=== PATIENT | male | born 1955 | race Caucasian/White ===

== ENCOUNTER 2020-01-26 09:48 | Outpatient (REF) | payer OTHER, SELFPAY ==
[2020-01-26 10:17] LABS: MANUAL DIFF FLAG NO
[2020-01-26 10:27] LABS: Basophils Percent Auto 0.2 % (0-2); Eosinophils Percent Auto 0.2 % (0-4); Hematocrit 44.6 % (42-52); Hemoglobin 15.2 g/dl (14.0-18.0); Imm Gran Abs Auto 0.02 X10*3/uL (0.00-0.03); Imm Gran Pct Auto 0.3 % (0.0-0.4); Lymphocytes Absolute Auto 2.1 X10*3/uL (1.2-4.9); Lymphocytes Percent Auto 35.1 % (20-40); Mean Corpuscular HGB Conc 34.1 g/dl (31.0-36.0); Mean Corpuscular Hemoglobin 31.5 pg (27.0-33.0); Mean Corpuscular Volume 92.5 fL (80-98); Mean Platelet Volume 9.4 fL (9.4-12.4); Monocytes Absolute Auto 0.5 X10*3/uL (0.1-1.2); Monocytes Percent Auto 7.9 % (2-11); Neutrophils Absolute Auto 3.4 X10*3/uL (2.0-8.3); Neutrophils Percent Auto 56.3 % (45-73); Platelet Count 317 X10*3/uL (160-400); Red Blood Count 4.82 X10*6/uL (4.60-5.80); Red Cell Distribution Width 11.7 % (11.0-16.0)
[2020-01-26 10:57] LABS: Alanine Aminotransferase 23 U/L (0-40); Albumin Level 4.5 g/dL (3.5-5.0); Alkaline Phosphatase 82 U/L (39-117); Anion Gap 15 (12-20); Aspartate Amino Transferase 22 U/L (5-37); Bilirubin Total 0.5 mg/dL (0.0-1.0); Blood Urea Nitrogen 11 mg/dL (9-16); Calcium 9.1 mg/dL (8.4-10.2); Carbon Dioxide 23 mmol/L (22-29); Chloride 104 mmol/L (96-108); Cholesterol 193 mg/dL; Estimated Glomerular Filt Rate > 60; Glucose Fasting 109 mg/dL (60-99); HDL Cholesterol 69 mg/dL; LDL Cholesterol Calculated 99 mg/dl; Potassium 4.1 mmol/l (3.3-5.1); Sodium 138 mmol/L (135-145); Total Protein 7.8 g/dL (6.5-8.0); Triglycerides 129 mg/dL
== END 2020-01-26 09:49 | disposition home or self-care (01) ==
LOC: HO.LAB 09:48
PROVIDERS: PCP Internal Medicine; Visit Provider Internal Medicine
DX: Z00.00 Encounter for general adult medical examination without abnormal findings (principal); E11.9 Type 2 diabetes mellitus without complications
CPT/HCPCS: 36415; 80053; 80061; 85025

== ENCOUNTER 2021-01-31 05:47 | Outpatient (REF) | payer OTHER, SELFPAY ==
[2021-01-31 06:03] LABS: MANUAL DIFF FLAG NO
[2021-01-31 07:08] LABS: Basophils Percent Auto 0.2 % (0-2); Eosinophils Absolute Auto 0.1 X10*3/uL (0.0-0.4); Eosinophils Percent Auto 0.9 % (0-4); Hematocrit 44.6 % (42.0-52.0); Hemoglobin 14.9 g/dl (14.0-18.0); Imm Gran Abs Auto 0.01 X10*3/uL (0.00-0.03); Imm Gran Pct Auto 0.2 % (0.0-0.4); Lymphocytes Absolute Auto 2.3 X10*3/uL (1.2-4.9); Mean Corpuscular HGB Conc 33.4 g/dl (31.0-36.0); Mean Corpuscular Volume 92.9 fL (80.0-98.0); Mean Platelet Volume 9.8 fL (9.4-12.4); Monocytes Absolute Auto 0.5 X10*3/uL (0.1-1.2); Monocytes Percent Auto 9.7 % (2-11); Neutrophils Absolute Auto 2.7 x10*3/uL (2.0-8.3); Platelet Count 303 X10*3/uL (160-400); Red Cell Distribution Width 11.9 % (11.0-16.0); White Blood Count 5.6 X10*3/uL (4.8-10.8)
[2021-01-31 07:09] LABS: Alanine Aminotransferase 24 U/L (0-40); Albumin Level 4.3 g/dL (3.5-5.0); Alkaline Phosphatase 79 U/L (39-117); Anion Gap 14 (12-20); Aspartate Amino Transferase 23 U/L (5-37); Bilirubin Total 0.6 mg/dL (0.0-1.0); Blood Urea Nitrogen 11 mg/dL (9-16); Calcium 9.6 mg/dL (8.4-10.2); Carbon Dioxide 23 mmol/L (22-29); Chloride 108 mmol/L (96-108); Cholesterol 207 mg/dL; Estimated Glomerular Filt Rate > 60; Glucose Fasting 110 mg/dL (60-99); HDL Cholesterol 65 mg/dL; LDL Cholesterol Calculated 117 mg/dl; Potassium 4.1 mmol/L (3.3-5.1); Sodium 141 mmol/L (135-145); Total Protein 7.5 g/dL (6.5-8.0); Triglycerides 127 mg/dL
[2021-01-31 07:22] LABS: Thyroid Stimulating Hormone 2.04 uIU/mL (0.32-4.0)
[2021-01-31 07:54] LABS: Prostate Specific Antigen Scr 1.18 ng/mL (<0.05-4.0)
== END 2021-01-31 05:48 | disposition home or self-care (01) ==
LOC: HO.LAB 05:47
PROVIDERS: PCP Internal Medicine; Visit Provider Internal Medicine
DX: Z00.00 Encounter for general adult medical examination without abnormal findings (principal); Z12.5 Encounter for screening for malignant neoplasm of prostate
CPT/HCPCS: 36415; 80053; 80061; 84153; 84443; 85025

== ENCOUNTER 2022-05-01 06:06 | Day surgery (SDC) | payer MEDICARE, SELFPAY ==
[2022-05-01 06:23] VITALS: BMI 24.3
[2022-05-01 06:47] VITALS: BP 147/93; PULSE 90; RESP 18; TEMP 36.7; O2SAT 98
--- NOTE | 2022-05-01 06:47 | P.CONAN_ITS ---
[facility] Active Problems Active Problems: All Active Problems (Updated 04/30/22 @ 13:21 by Claudette Wolfe RN) Physical exam (Acute) Anxiety (Acute) Seizure (Acute) Past Medical History Medical History (Updated 04/30/22 @ 13:21 by Claudette Wolfe RN) Anxiety Barretts esophagus GERD (gastroesophageal reflux disease) PFO (patent foramen ovale) Seizure TIA (transient ischemic attack) Family History Family History Father Heart failure Myocardial infarction Mother Alzheimers disease Family history of problems with anesthesia: No Surgical History Surgical History History of appendectomy History of Problems with Anesthesia: No Social History Social History Housing: House Alcohol intake: current Alcohol intake frequency: a few times a month Patient Tobacco Use Status: Never used Tobacco e-Cigarette/Vaping Use: Never Used Second Hand Smoke Exposure: No Substance Use Frequency: Occasionally Are you DNR?: No Advance Directives: No Advance Directives Information Provided: Yes Nutrition Risks: No Nutritional Risk service: No Current occupational status: employed Cognitive needs: No Hearing needs: No Vision needs: No Meds Allergies Allergy/AdvReac Type Severity Reaction Status Date / Time fentanyl [FENTANYL] Allergy Intermediate VOMITING Verified 05/01/22 06:21 AFTER SURGERY Home Medications Medication Instructions Recorded Confirmed Last Taken Type aspirin 81 mg tablet,delayed 81 mg PO DAILY 04/30/22 04/30/22 Unknown History release (Ecotrin Low Strength) Exam Exam Date and Time: May 01, 2022 0647 Height,Weight and Vital Signs: Height 5 ft 9 in Weight 74.843 kg Airway Mallampati Class: II TM Dist: >3cm Neck ROM: Full Heart: rrr Lungs: cta bl Assessment and Plan Assessment Anesthesia Assessment: Anesthesia Plan Discussed and Chart Reviewed Final Anesthetic Review Family History of Problems with Anesthesia: No History of Problems with Anesthesia: No NPO: Yes ASA Class: II Final Preanesthetic Review: No Changes in Pt Med Stat, Meds/Allgs Chart Reviewed and Consent Obtained/Reviewed Patient Risk: Intermediate Procedure Risk: Intermediate Anesthetic Plan Anesthetic Plan: MAC: Disposition: Standard PACU
[2022-05-01] MEDS: Lactated Ringers 1,000 ML 50 ML IVCONT (07:31)
[2022-05-01 08:02] VITALS: BP 96/57; PULSE 91; RESP 16; TEMP 36.6; O2SAT 100
--- NOTE | 2022-05-01 08:05 | P.BOP_ITS ---
Brief Operative Note Date of Service: 05/01/22 Pre-op diagnosis: Cosme's esophagus Post-op diagnosis: other (Same, Hiatal hernia) Procedure: EGD with biopsy Surgeon: Amaury Carbajal Anesthesia: MAC Was an Financial [employer] Representative used for this Procedure?: No Estimated blood loss (mL): 2.0 Pathology: other (A. EG Junction at 35cm) Condition: stable Disposition: PACU
[2022-05-01 08:17] VITALS: BP 121/82; PULSE 81; RESP 18; TEMP 36.6; O2SAT 97
--- NOTE | 2022-05-01 10:05 | OP_ITS ---
SURGEON: Amaury Carbajal MD INDICATIONS: The patient presents for evaluation of chronic gastroesophageal reflux and history of Cosme's esophagus. Full consent has been obtained from him for this, including risks of bleeding and perforation. PREOPERATIVE DIAGNOSIS: POSTOPERATIVE DIAGNOSIS: PROCEDURE PERFORMED: Esophagogastroduodenoscopy with biopsies. ESTIMATED BLOOD LOSS: COMPLICATIONS: ANESTHESIA: Monitored anesthesia care. ASSISTANTS: SPECIMENS: PREOPERATIVE DIAGNOSES: Gastroesophageal reflux, Cosme's esophagus, and hiatal hernia. DESCRIPTION OF PROCEDURE: The patient was placed in the left lateral decubitus position. The Olympus video gastroscope was passed in the posterior oropharynx and upper esophagus under direct vision. The scope was passed slowly to the distal esophagus. The gastroesophageal junction appeared at 35 cm. There is a very minimal irregularity, but no definitive evidence of Cosme's mucosa. There is no esophagitis nor any lesions. The scope entered the stomach. There is a small to moderate sized hiatal hernia. The hiatal hernia mucosa appeared normal. The scope was advanced to the pylorus and the duodenum was cannulated to the descending portion. The duodenum including the bulb appeared normal without mass or ulceration. The scope was withdrawn back in the stomach. The gastric antrum and body appeared normal with good peristalsis. The scope was retroflexed visualizing the proximal stomach carefully, which appeared normal, without any sign of mass or ulceration. The scope was straightened and withdrawn back in the esophagus. Multiple biopsies were obtained at the EG junction at 35 cm. Proximal to this, the esophageal mucosa appeared normal. The scope was withdrawn from the patient. He tolerated the procedure well and was returned to the recovery area in stable condition. IMPRESSION: Hiatal hernia, history of Cosme's esophagus. PLAN: The results of the biopsies will be checked. Assuming there is no dysplasia, I would recommend a repeat upper endoscopy in 2025 when he has his next screening colonoscopy. He will continue his daily lansoprazole. He was advised to resume his aspirin in 48 hours. He will otherwise see me on a p.r.n. basis. This has been discussed with his sister. MD ANA Hernandez/MIREYA / [id number] FANNIE
== END 2022-05-01 08:36 | disposition home or self-care (01) ==
PROVIDERS: PCP Internal Medicine; Visit Provider Internal Medicine
PROC: 0DJ08ZZ Inspection of Upper Intestinal Tract, Via Natural or Artificial Opening Endoscopic (ICD-10-PCS; CPT 43235; principal; 2022-05-01 07:30)
DX: K21.9 Gastro-esophageal reflux disease without esophagitis (principal); Z87.19 Personal history of other diseases of the digestive system; K44.9 Diaphragmatic hernia without obstruction or gangrene; R56.9 Unspecified convulsions; F41.1 Generalized anxiety disorder; Q21.12 Patent foramen ovale; Z86.73 Personal history of transient ischemic attack (TIA), and cerebral infarction without residual deficits; Z79.82 Long term (current) use of aspirin; Z88.8 Allergy status to other drugs, medicaments and biological substances
CPT/HCPCS: 43239; 88305; J1100; J2250

== ENCOUNTER 2022-05-22 06:04 | Outpatient (REF) | payer MEDICARE, SELFPAY ==
[2022-05-22 06:18] LABS: MANUAL DIFF FLAG NO
[2022-05-22 07:46] LABS: Basophils Percent Auto 0.3 % (0-2); Eosinophils Percent Auto 0.5 % (0-4); Hematocrit 45.9 % (42.0-52.0); Hemoglobin 15.4 g/dl (14.0-18.0); Imm Gran Abs Auto 0.01 X10*3/uL (0.00-0.03); Imm Gran Pct Auto 0.2 % (0.0-0.4); Lymphocytes Absolute Auto 2.8 X10*3/uL (1.2-4.9); Lymphocytes Percent Auto 45.6 % (20-40); Mean Corpuscular HGB Conc 33.6 g/dl (31.0-36.0); Mean Corpuscular Volume 92.5 fL (80.0-98.0); Mean Platelet Volume 9.7 fL (9.4-12.4); Monocytes Absolute Auto 0.6 X10*3/uL (0.1-1.2); Neutrophils Absolute Auto 2.7 x10*3/uL (2.0-8.3); Neutrophils Percent Auto 43.4 % (45-73); Platelet Count 304 X10*3/uL (160-400); Red Blood Count 4.96 X10*6/uL (4.60-5.80); Red Cell Distribution Width 12.2 % (11.0-16.0); White Blood Count 6.2 X10*3/uL (4.8-10.8)
[2022-05-22 08:24] LABS: Alanine Aminotransferase 27 U/L (0-40); Albumin Level 4.3 g/dL (3.5-5.0); Alkaline Phosphatase 74 U/L (39-117); Anion Gap 16 (12-20); Aspartate Amino Transferase 25 U/L (5-37); Bilirubin Total 0.7 mg/dL (0.0-1.0); Blood Urea Nitrogen 11 mg/dL (9-16); Calcium 9.5 mg/dL (8.4-10.2); Carbon Dioxide 22 mmol/L (22-29); Chloride 107 mmol/L (96-108); Cholesterol 208 mg/dL; Estimated Glomerular Filt Rate > 60; Glucose Fasting 108 mg/dL (60-99); HDL Cholesterol 61 mg/dL; LDL Cholesterol Calculated 110 mg/dl; Sodium 141 mmol/L (135-145); Total Protein 7.3 g/dL (6.5-8.0); Triglycerides 189 mg/dL
[2022-05-22 08:28] LABS: Prostate Specific Antigen Scr 1.49 ng/mL (<0.05-4.0); Thyroid Stimulating Hormone 2.23 uIU/mL (0.32-4.0)
[2022-05-22 09:46] LABS: Phenytoin Dilantin 4.2 ug/mL (10.0-20.0)
== END 2022-05-22 06:05 | disposition home or self-care (01) ==
LOC: HO.LAB 06:04
PROVIDERS: PCP Internal Medicine; Visit Provider Internal Medicine
DX: Z00.00 Encounter for general adult medical examination without abnormal findings (principal); E03.9 Hypothyroidism, unspecified; G40.909 Epilepsy, unspecified, not intractable, without status epilepticus; E78.5 Hyperlipidemia, unspecified; N28.9 Disorder of kidney and ureter, unspecified; D64.9 Anemia, unspecified; Z12.5 Encounter for screening for malignant neoplasm of prostate
CPT/HCPCS: 36415; 80053; 80061; 80185; 84153; 84443; 85025

== ENCOUNTER 2023-05-20 09:47 | Outpatient (AMB) | payer MEDICARE, SELFPAY ==
--- NOTE | 2023-05-20 09:47 | A.OFFPC_ITS ---
Vital Signs 05/20/23 09:48 Height 5 ft 6 in Weight 171 lb BMI 27.6 BP 140/90 H Blood Pressure Location Lt brachial Position Sitting Pulse 84 Pulse Source Pulse Oximeter Pulse Oximetry (%) 98 Oxygen Delivery Method Room Air Intake Visit Reasons: Annual Exam Language And Literature Division Chair Required: No Pottery Kiln Builder: Not Required per policy Accompanied by: Self / Same As Patient Allergies fentanyl [FENTANYL] Allergy (Intermediate, Verified 05/20/23 09:48) VOMITING AFTER SURGERY Medication List - Last Reconciled 05/20/23 by José Manuel Sheppard MD aspirin (Ecotrin Low Strength) 81 mg PO DAILY clotrimazole-betamethasone 1-0.05 % 1 appl topical BID 2 weeks lansoprazole 30 mg PO DAILY lorazepam 0.5 mg PO Q6H PRN phenytoin sodium extended 100 mg PO TID Tobacco use date assessed: 05/20/23 Fall risk assessment: No Falls in past year Last assessed Fall Risk: 05/20/23 Dental Screening Dental Screen Date: 05/20/23 Did you have a dental visit in the last 12 months?: Yes Did you have a dental problem in the last 6 months where you did not have access to dental care?: No Was dental information given to patient?: Patient has dentist HPI Annual Exam HPI Details GERD and Sz disorder; runs low dilantin level but no Sz in decades; refuses to stop rx PFSH Medical History (Updated 05/20/23 @ 10:32 by José Manuel Sheppard MD) Barretts esophagus GERD (gastroesophageal reflux disease) PFO (patent foramen ovale) TIA (transient ischemic attack) Anxiety Seizure Surgical History Hx of esophagogastroduodenoscopy History of appendectomy Family History (Updated 05/20/23 @ 09:49 by JANELL Culver) Father Heart failure Myocardial infarction Mother Alzheimers disease Social History Housing: House Alcohol intake: current Alcohol intake frequency: a few times a month Patient Tobacco Use Status: Never used Tobacco e-Cigarette/Vaping Use: Never Used Second Hand Smoke Exposure: No service: No Current occupational status: employed Cognitive needs: No Hearing needs: No Vision needs: No Questionnaire PHQ-9 Over the last 2 weeks, how often have you been bothered by any of the following problems? 1. Little interest or pleasure in doing things: not at all 2. Feeling down, depressed, or hopeless: not at all 3. Trouble falling or staying asleep, or sleeping too much: not at all 4. Feeling tired or having little energy: not at all 5. Poor appetite or overeating: not at all 6. Feeling bad about yourself - or that you are a failure or have let yourself or your family down: not at all 7. Trouble concentrating on things, such as reading the newspaper or watching television: not at all 8. Moving or speaking so slowly that other people could have noticed. Or the opposite - being so fidgety or restless that you have been moving around a lot more than usual: not at all 9. Thoughts that you would be better off or of hurting yourself in some way: not at all Total score: 0 Depression Screening Interpretation: Negative Depression Screening Done: Yes [id number] - PHQ-9 Billing: Yes Source: Developed by Drs. Amaury Marcos, Kacie Nagy, Jose Horne and colleagues, with an educational hilda from [employer]. Thrive Questionnaire Date Thrive assessed: 05/20/23 I am a: Patient What is your living situation today?: I have a steady place to live Within the past 12 months, did the food you bought not last and you didn't have the money to get more?: Never true Within the past 12 months, did you worry whether your food would run out before you got money to buy more?: Never true Do you have trouble paying for medicines?: No Do you have trouble getting transportation to medical appointments?: No Do you have trouble paying your heating and electricity bill?: No Do you have trouble taking care of your child, family member or friend?: No Do you have trouble with day-to-day activities such as bathing, preparing meals, shopping, managing finances, etc.?: No Are you currently unemployed and looking for a job?: No Are you interested in more education?: No Please select the resources that you would like help with: None THRIVE Score: 0 AUDIT C Alcohol Use Questionnaire (AUDIT-C) 1. How often do you have a drink containing alcohol?: Monthly or less 2. How many drinks containing alcohol do you have on a typical day when you are drinking?: 1 or 2 3. How often do you have six or more drinks on one occasion?: Never Total Score: 1 Score Reviewed/Action Taken: Yes TEVIN-7 AMB Questionnaire TEVIN-7 Date TEVIN - 7 assessed: 05/20/23 Feeling nervous, anxious, or on edge: 0 = Not at all Not being able to stop or control worryin = Not at all Worrying too much about different things: 0 = Not at all Trouble relaxin = Not at all Being so restless that it is hard to sit still: 0 = Not at all Becoming easily annoyed or irritable: 0 = Not at all Feeling afraid as if something awful might happen: 0 = Not at all Total TEVIN-7 score (0-4 normal; 5-9 mild; 10-14 moderate; 15-21 severe): 0 Source: Developed by Drs. Amaury Marcos, Kacie Nagy, Jose Horne and colleagues, with an educational hilda from [employer]. TEVIN-7 Assessment Billing TEVIN-7 Assessment Tool: TEVIN-7 Assessment 10015 Review of Systems Const Denies chills, Denies fatigue, Denies headache(s) and Denies weight loss Eyes Denies change in vision, Denies diplopia and Denies eye pain ENT Denies vertigo, Denies dizziness, Denies headache(s) and Denies nasal discharge Card Denies chest pain, Denies rapid heart rate and Denies dyspnea on exertion Resp Denies chest congestion, Denies cough, Denies pain with cough and Denies dyspnea on exertion GI Denies abdominal pain, Denies hematochezia and Denies change in bowel habits Musc Denies myalgias, Denies arthralgias and Denies joint swelling Skin/Breast Denies lesions and Denies unusual bruising Neuro Denies vertigo, Denies dizziness, Denies headache(s) and Denies focal weakness Endo Denies fatigue Physical exam (Primary Care) Vital Signs: Last Vital Signs Pulse 84 05/20/23 09:48 BP 140/90 H 05/20/23 09:48 Pulse Ox 98 05/20/23 09:48 Oxygen Delivery Method Room Air 05/20/23 09:48 BMI result Body Mass Index 27.6 Tobacco/Smoking Status: Tobacco use Status Tobacco use date assessed 05/20/23 05/20/23 09:54 Patient Tobacco Use Status Never used Tobacco 05/20/23 09:54 e-Cigarette/Vaping Use Never Used 05/20/23 09:54 PHQ-9: PHQ-9 Score PHQ-9: Total score 0 05/20/23 09:54 Depression Screening Interpretation: Negative Thrive Assessment: Date of Thrive Assessment Date Thrive assessed 05/20/23 05/20/23 09:54 Const General: cooperative, healthy appearing and no acute distress Orientation/consciousness: oriented to person, oriented to place and oriented to time HENMT Head: Yes normal to inspection, Yes normocephalic and Yes atraumatic Mouth: Normal oral and palatal mucosa present and tongue normal Throat: Yes posterior oropharynx normal and Yes uvula midline Eyes General: appearance normal, both eyes and all related structures Neck Neck: Yes normal visual inspection, Yes full ROM and Yes no lymphadenopathy Thyroid: Thyroid normal Carotids: normal carotid upstroke Chest Chest palpation & inspection: normal inspection of the chest Resp Effort & Inspection: normal respiratory effort and able to speak in complete sentences Auscultation: clear to auscultation bilaterally Cardio Jugular venous distension: no JVD Palpation: normal PMI Rate: regular rate Rhythm: regular rhythm Heart sounds: S1 normal heart sound present and S2 normal heart sound present GI Inspection: Yes normal to inspection Palpation (GI): Soft to palpation and No hepatosplenomegaly present Auscultation: normal bowel sounds General: Yes no CVA tenderness Back/Spine/Pelvis Back: no CVA tenderness Skin General skin exam: no rashes or lesions noted Neuro General: oriented to person, oriented to place and oriented to time Extrem General: Yes normal to inspection and Yes full ROM Assessment and Plan Assessment & Plan (1) Physical exam: Code(s): Z00.00 - Encounter for general adult medical examination without abnormal findings Plan: stable; do labs (2) Seizure: Code(s): R56.9 - Unspecified convulsions Plan: stable; do labs (3) Chronic GERD: Code(s): K21.9 - Gastro-esophageal reflux disease without esophagitis Plan: same rx Orders: Orders Lipid Panel Today E78.5 - Hyperlipidemia, unspecified Prostate Specific Antigen Scr Today Z00.00 - Encounter for general adult medical examination without abnormal findings Thyroid Stimulating Hormone Today E03.9 - Hypothyroidism, unspecified Complete Blood Count Auto Diff Today D64.9 - Anemia, unspecified Comprehensive [place]. Panel Fast Today N28.9 - Disorder of kidney and ureter, unspecified Coding Level of Care Code New Pt Prev Care >65yr (32030) Diagnoses Physical exam Z00.00 Seizure R56.9 Chronic GERD K21.9 Additional Codes TEVIN-7 Assessment Billing - TEVIN-7 Assessment Tool: TEVIN-7 Assessment 18723 ([id number])
[2023-05-20 09:48] VITALS: BP 140/90; PULSE 84; O2SAT 98; BMI 27.6
== END 2023-05-20 10:23 | disposition home or self-care (01) ==
PROVIDERS: Visit Provider Internal Medicine
DX: Z00.00 Encounter for general adult medical examination without abnormal findings (principal); R56.9 Unspecified convulsions; K21.9 Gastro-esophageal reflux disease without esophagitis
CPT/HCPCS: 99397

== ENCOUNTER 2023-05-21 05:56 | Outpatient (REF) | payer MEDICARE, SELFPAY ==
[2023-05-21 06:18] LABS: MANUAL DIFF FLAG NO
[2023-05-21 07:37] LABS: Basophils Percent Auto 0.4 % (0-2); Eosinophils Percent Auto 0.4 % (0-4); Hematocrit 45.9 % (42.0-52.0); Hemoglobin 15.9 g/dl (14.0-18.0); Imm Gran Abs Auto 0.01 X10*3/uL (0.00-0.03); Imm Gran Pct Auto 0.1 % (0.0-0.4); Lymphocytes Absolute Auto 2.6 X10*3/uL (1.2-4.9); Lymphocytes Percent Auto 39.4 % (20-40); Mean Corpuscular HGB Conc 34.6 g/dl (31.0-36.0); Mean Corpuscular Hemoglobin 31.9 pg (27.0-33.0); Mean Corpuscular Volume 92.2 fL (80.0-98.0); Mean Platelet Volume 9.6 fL (9.4-12.4); Monocytes Absolute Auto 0.5 X10*3/uL (0.1-1.2); Monocytes Percent Auto 8.1 % (2-11); Neutrophils Absolute Auto 3.4 x10*3/uL (2.0-8.3); Neutrophils Percent Auto 51.6 % (45-73); Platelet Count 285 X10*3/uL (160-400); Red Blood Count 4.98 X10*6/uL (4.60-5.80); Red Cell Distribution Width 12.3 % (11.0-16.0); White Blood Count 6.7 X10*3/uL (4.8-10.8)
[2023-05-21 07:54] LABS: Alanine Aminotransferase 27 U/L (0-40); Albumin Level 4.2 g/dL (3.5-5.0); Alkaline Phosphatase 77 U/L (39-117); Anion Gap 14 (12-20); Aspartate Amino Transferase 29 U/L (5-37); Bilirubin Total 0.5 mg/dL (0.0-1.0); Blood Urea Nitrogen 12 mg/dL (9-16); Calcium 9.5 mg/dL (8.4-10.2); Carbon Dioxide 21 mmol/L (22-29); Chloride 107 mmol/L (96-108); Cholesterol 186 mg/dL (<200); Estimated Glomerular Filt Rate > 60; Glucose Fasting 103 mg/dL (60-99); HDL Cholesterol 57 mg/dL (>40); LDL Cholesterol Calculated 94 mg/dL (<100); Potassium 3.9 mmol/L (3.3-5.1); Sodium 138 mmol/L (135-145); Total Protein 7.7 g/dL (6.5-8.0); Triglycerides 179 mg/dL (<150)
[2023-05-21 08:04] LABS: Prostate Specific Antigen Scr 1.58 ng/mL (<0.05-4.0)
[2023-05-21 08:06] LABS: Thyroid Stimulating Hormone 2.19 uIU/mL (0.32-4.0)
== END 2023-05-21 05:57 | disposition home or self-care (01) ==
LOC: HO.LAB 05:56
PROVIDERS: PCP Internal Medicine; Visit Provider Internal Medicine
DX: Z00.00 Encounter for general adult medical examination without abnormal findings (principal); Z12.5 Encounter for screening for malignant neoplasm of prostate; E03.9 Hypothyroidism, unspecified; D64.9 Anemia, unspecified; N28.9 Disorder of kidney and ureter, unspecified; E78.5 Hyperlipidemia, unspecified
CPT/HCPCS: 36415; 80053; 80061; 84153; 84443; 85025

== ENCOUNTER 2023-06-05 07:30 | Emergency (ER) | payer MEDICARE, SELFPAY ==
--- NOTE | ~2023-06-05 | XR_ITS ---
EXAMINATION: XR CHEST CLINICAL INFORMATION: Palpitations COMPARISON: Chest 11/13/2018 TECHNIQUE: 2 views of the chest were obtained. FINDINGS: The lungs are hyperinflated with flattening of the hemidiaphragms. No focal consolidation, interstitial pulmonary edema or pneumothorax. No pleural effusion. No significant abnormality is noted involving the heart, mediastinum, bony thorax or soft tissues. XR/XR chest 2V IMPRESSION: No acute abnormality.
--- NOTE | 2023-06-05 07:32 | ECG_ITS ---
Test Reason : RAPID HR Blood Pressure : / mmHG Vent. Rate : 106 BPM Atrial Rate : 106 BPM P-R Int : 172 ms QRS Dur : 068 ms QT Int : 334 ms P-R-T Axes : 054 012 049 degrees QTc Int : 443 ms Sinus tachycardia Low voltage QRS Borderline ECG When compared with ECG of 19-FEB-2016 05:34, No significant change was found Referred By: Generic ED Physician Electronically Signed By:JESSIE SEGURA MD
[2023-06-05 07:36] VITALS: BP 135/93; PULSE 107; RESP 16; O2SAT 99; BMI 25.1
[2023-06-05 08:00] LABS: MANUAL DIFF FLAG NO
[2023-06-05 08:01] LABS: Basophils Percent Auto 0.3 % (0-2); Eosinophils Percent Auto 0.5 % (0-4); Hematocrit 45.7 % (42.0-52.0); Hemoglobin 15.7 g/dl (14.0-18.0); Imm Gran Abs Auto 0.01 X10*3/uL (0.00-0.03); Imm Gran Pct Auto 0.2 % (0.0-0.4); Lymphocytes Absolute Auto 2.1 X10*3/uL (1.2-4.9); Lymphocytes Percent Auto 37.3 % (20-40); Mean Corpuscular HGB Conc 34.4 g/dl (31.0-36.0); Mean Corpuscular Hemoglobin 31.3 pg (27.0-33.0); Mean Corpuscular Volume 91.2 fL (80.0-98.0); Mean Platelet Volume 8.8 fL (9.4-12.4); Monocytes Absolute Auto 0.4 X10*3/uL (0.1-1.2); Monocytes Percent Auto 7.7 % (2-11); Neutrophils Absolute Auto 3.1 x10*3/uL (2.0-8.3); Platelet Count 254 X10*3/uL (160-400); Red Blood Count 5.01 X10*6/uL (4.60-5.80); White Blood Count 5.7 X10*3/uL (4.8-10.8)
[2023-06-05 08:15] LABS: Anion Gap 13 (12-20); Blood Urea Nitrogen 14 mg/dL (9-16); Calcium 9.1 mg/dL (8.4-10.2); Carbon Dioxide 22 mmol/L (22-29); Chloride 108 mmol/L (96-108); Creatinine Clr Calc Pharmacy 69.2; Estimated Glomerular Filt Rate > 60; Glucose Random 157 mg/dL (60-115); Potassium 3.6 mmol/L (3.3-5.1); Sodium 139 mmol/L (135-145)
[2023-06-05 08:26] LABS: Troponin-I High Sensitivity < 2.7 ng/L (<3.5-35.0)
[2023-06-05 11:01] VITALS: BP 146/101; PULSE 90; RESP 18; TEMP 36.7; O2SAT 97
--- NOTE | 2023-06-05 11:07 | ED.GENADULT ---
HPI - General Adult General Chief complaint: Arrhythmia/Palpitations Stated complaint: rapid heart beat dizzy Time Seen by Provider: 06/05/23 11:07 History of Present Illness HPI narrative: The patient is a 68-year-old male with a history of GERD and hiatal hernia who has had a sense of fluttering in his chest intermittently for the last few weeks. He has also had an intermittent sense of occasional chest discomfort that he has trouble describing. He also says that he has a tendency towards anxiety. 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 He is supposed to return to work very soon after having the winter off and he is anxious about returning for work. This morning he felt some fluttering in his chest and decided come to the emergency room for evaluation. Related Data Home Medications ?Medication ?Instructions ?Recorded ?Confirmed aspirin 81 mg tablet,delayed 81 mg PO DAILY 04/30/22 05/20/23 release (Ecotrin Low Strength) Previous Rx's ?Medication ?Instructions ?Recorded lansoprazole 30 mg capsule,delayed 30 mg PO DAILY #90 caps 05/15/22 release clotrimazole-betamethasone 1 1 appl topical BID 2 weeks #45 05/17/22 %-0.05 % topical cream grams lorazepam 0.5 mg tablet 0.5 mg PO Q6H PRN agitation #90 04/01/23 tabs phenytoin sodium extended 100 mg 100 mg PO TID #90 caps 04/01/23 capsule Allergies Allergy/AdvReac Type Severity Reaction Status Date / Time fentanyl [FENTANYL] Allergy Intermediate VOMITING Verified 06/05/23 07:42 AFTER SURGERY Review of Systems Review of Systems: Yes all other systems are reviewed and are negative [facility] Past Medical History Medical History (Updated 06/05/23 @ 12:16 by Emiliano Arboleda MD) Barretts esophagus GERD (gastroesophageal reflux disease) PFO (patent foramen ovale) TIA (transient ischemic attack) Anxiety Seizure Surgical History Hx of esophagogastroduodenoscopy History of appendectomy Family History Family History (Updated 05/20/23 @ 09:49 by JANELL Culver) Father Heart failure Myocardial infarction Mother Alzheimers disease Social History Social History Housing: House Alcohol intake: current Alcohol intake frequency: a few times a month Patient Tobacco Use Status: Never used Tobacco Smoked in Last 30 Days: No e-Cigarette/Vaping Use: Never Used Second Hand Smoke Exposure: No Advance Directives: Yes Advance Directives Information Provided: Yes Advance Directives on File: No service: No Current occupational status: employed Cognitive needs: No Hearing needs: No Vision needs: No Physical Exam ED Vital Signs: Vital Signs - 24 hr 06/05/23 07:36 06/05/23 11:01 06/05/23 12:49 Temperature 98.0 F 98 F Pulse Rate 107 H 90 89 Respiratory Rate 16 18 16 Blood Pressure 135/93 H 146/101 H 145/92 H Pulse Oximetry 99 97 96 Oxygen Delivery Method Room Air Room Air Room Air BMI result Body Mass Index 25.1 Const Other: The patient is awake, alert, pleasant, cooperative. He has a somewhat anxious affect. He does not seem in any distress HENMT Other: Face is symmetrical. Eyes Other: Pupils are round equal, conjunctivae are clear Neck Other: No JVD Resp Effort & Inspection: normal respiratory effort Auscultation: clear to auscultation bilaterally Cardio Rate: regular rate Rhythm: regular rhythm Heart sounds: S1 normal heart sound present and S2 normal heart sound present GI Other: Abdomen soft and nontender Skin Other: Skin is dry and unremarkable Neuro Other: Awake, alert, appropriate, grossly neurologically intact. Extrem Other: No calf swelling or tenderness Medical Decision Making Medical Decision Making MDM Narrative: The patient is a 68-year-old male who comes for evaluation of intermittent fluttering in his chest and very nonspecific chest discomfort. He has an anxious affect. His physical exam is otherwise unremarkable. EKG is unremarkable. Troponins are flat. Other labs unremarkable. Chest x-ray unremarkable. Overall I would have a very low suspicion for acute coronary syndrome in this patient. I explained to the patient that I thought it was safe to discharge him as there was no evidence of a heart attack. I further explained that it is not impossible he might have something like atrial fibrillation as a cause for his episodes of the fluttering in his chest. He will be discharged to follow up with his regular doctor. He seems comfortable with this plan. Lab Data 06/05/23 07:54 06/05/23 07:54 Labs: Lab Results 06/05/23 06/05/23 Range/Units 07:54 11:42 WBC 5.7 (4.8-10.8) X10*3/uL RBC 5.01 (4.60-5.80) X10*6/uL Hgb 15.7 (14.0-18.0) g/dl Hct 45.7 (42.0-52.0) % MCV 91.2 (80.0-98.0) fL MCH 31.3 (27.0-33.0) pg MCHC 34.4 (31.0-36.0) g/dl RDW 12.0 (11.0-16.0) % Plt Count 254 (160-400) X10*3/uL MPV 8.8 L (9.4-12.4) fL Immature Gran % (Auto) 0.2 (0.0-0.4) % Neut % (Auto) 54.0 (45-73) % Lymph % (Auto) 37.3 (20-40) % Falls % (Auto) 7.7 (2-11) % Eos % (Auto) 0.5 (0-4) % Baso % (Auto) 0.3 (0-2) % Lymph # (Auto) 2.1 (1.2-4.9) X10*3/uL Falls # (Auto) 0.4 (0.1-1.2) X10*3/uL Eos # (Auto) 0.0 (0.0-0.4) X10*3/uL Baso # (Auto) 0.0 (0.0-0.2) X10*3/uL Abs Immat Gran (auto) 0.01 (0.00-0.03) X10*3/uL Absolute Neuts (auto) 3.1 (2.0-8.3) x10*3/uL Absolute Nucleated RBC 0.000 (0.0-0.012) X10*3/uL Nucleated RBC % (auto) 0.0 (0.0-0.2) /100WBC Sodium 139 (135-145) mmol/L Potassium 3.6 (3.3-5.1) mmol/L Chloride 108 (96-108) mmol/L Carbon Dioxide 22 (22-29) mmol/L Anion Gap 13 (12-20) BUN 14 (9-16) mg/dL Creatinine 1.05 (0.5-1.4) mg/dL Estim Creat Clear Calc 69.2 Estimated GFR > 60 Random Glucose 157 H (60-115) mg/dL Calcium 9.1 (8.4-10.2) mg/dL Troponin I High Sens < 2.7 < 2.7 (<3.5-35.0) ng/L Independent Interpretation I performed an independent interpretation of an: EKG Interpretation: EKG at 07:35 shows sinus tachycardia 106 beats per minute. No acute ischemic changes. No significant change from previous Discharge Plan Discharge Clinical Impression: Chest discomfort, Palpitations Patient Disposition: Home, Self-Care Additional Instructions: Your testing in the emergency room today is very reassuring. There is no sign of a heart attack. 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 Please follow up with your regular doctor to discuss these symptoms further. Return to the emergency room if worse. Prescriptions: No Action lansoprazole 30 mg capsule,delayed release(DR/EC) 30 mg PO DAILY Qty: 90 8RF clotrimazole-betamethasone 1-0.05 % cream 1 appl topical BID 14 Days Qty: 45 2RF phenytoin sodium extended 100 mg capsule 100 mg PO TID Qty: 90 8RF lorazepam 0.5 mg tablet 0.5 mg PO Q6H PRN (Reason: agitation) Qty: 90 5RF aspirin [Ecotrin Low Strength] 81 mg Tablet,Delayed Release (Dr/Ec) 81 mg PO DAILY Interventions: ED Discharge Assessment Last Done: 06/05/23 12:49 Discharge Date/Time: 06/05/23 12:51 Print Language: Korean
[2023-06-05 12:12] LABS: Troponin-I High Sensitivity < 2.7 ng/L (<3.5-35.0)
[2023-06-05 12:49] VITALS: BP 145/92; PULSE 89; RESP 16; TEMP 36.6; O2SAT 96
== END 2023-06-05 12:51 | disposition home or self-care (01) ==
PROVIDERS: Emergency Provider Emergency Medicine; PCP Internal Medicine
DX: I49.9 Cardiac arrhythmia, unspecified (principal); R00.2 Palpitations; R07.89 Other chest pain; R00.0 Tachycardia, unspecified; Z79.899 Other long term (current) drug therapy
CPT/HCPCS: 36415; 71046; 80048; 84484; 85025; 93005; 99283; 99284

== ENCOUNTER → 2023-06-05 07:32 | Outpatient (BNV) | payer MEDICARE, SELFPAY | PROVIDERS: PCP Internal Medicine; Visit Provider Internal Medicine Cardiovascular Disease | DX: R00.0 Tachycardia, unspecified (principal); R94.31 Abnormal electrocardiogram [ECG] [EKG] | CPT/HCPCS: 93010 ==

== ENCOUNTER 2023-07-24 13:05 | Outpatient (AMB) | payer MEDICARE, SELFPAY ==
[2023-07-24 13:10] VITALS: BP 130/80; PULSE 103; TEMP 36.5; O2SAT 98; BMI 25.5
--- NOTE | 2023-07-24 13:10 | MHC.OFFWIV ---
Intake Vital Signs 07/24/23 13:10 Height 5 ft 9 in Weight 173 lb BMI 25.5 BP 130/80 Blood Pressure Location Lt brachial Position Sitting Pulse 103 H Pulse Source Pulse Oximeter Temp 97.7 F Temp Source Temporal Artery Scan Pulse Oximetry (%) 98 Oxygen Delivery Method Room Air Intake Visit Reasons: Ep intense pain in left shoulder Intake Note: pt is here today for intense pain in lft shoulder started 1 week ago Patient Tobacco Use Status: Never used Tobacco Allergies fentanyl [FENTANYL] Allergy (Intermediate, Verified 07/24/23 13:12) VOMITING AFTER SURGERY Do you need a note to return to daycare/school/sports/work: Yes HPI HPI Comments History of Present Illness Details 68 y/o male patient who presents to walk in clinic with c/o left shoulder pain x 4 days. 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 PFSH Medical History (Updated 06/06/23 @ 00:01 by Trev Lira) Barretts esophagus GERD (gastroesophageal reflux disease) PFO (patent foramen ovale) TIA (transient ischemic attack) Anxiety Seizure Surgical History Hx of esophagogastroduodenoscopy History of appendectomy Family History (Updated 05/20/23 @ 09:49 by JANELL Culver) Father Heart failure Myocardial infarction Mother Alzheimers disease Social History Housing: House Alcohol intake: current Alcohol intake frequency: a few times a month Patient Tobacco Use Status: Never used Tobacco e-Cigarette/Vaping Use: Never Used Second Hand Smoke Exposure: No service: No Current occupational status: employed Cognitive needs: No Hearing needs: No Vision needs: No Review of Systems Const All systems reviewed & are unremarkable except as noted in HPI and below Physical Exam Vital Signs: Last Vital Signs Temp 97.7 F 07/24/23 13:10 Pulse 103 H 07/24/23 13:10 BP 130/80 07/24/23 13:10 Pulse Ox 98 07/24/23 13:10 Oxygen Delivery Method Room Air 07/24/23 13:10 BMI result Body Mass Index 25.5 Const General: comfortable and no acute distress Orientation/consciousness: patient oriented x3 Neuro General: patient oriented x3 Extrem Right upper extremity: normal to inspection and full ROM Left upper extremity: shoulder/upper arm Details: inspection abnormal, tenderness Location: over the deltoid bursa and abnormal ROM (limited due to pain); no swelling Psych Speech and movement: Normal speech and movement present Assessment & Plan Assessment & Plan (1) Left shoulder pain: Code(s): M25.512 - Pain in left shoulder Qualifiers: Chronicity: acute Qualified Code(s): M25.512 - Pain in left shoulder Plan: - Rest joint - Take medications as directed - RTC if pain worse. Medications: New lidocaine 5% leave on most painful area for up to 12 hrs 1 patch topical DAILY 15 ea 0RF M25.512 - Pain in left shoulder ibuprofen 600 mg PO Q6H PRN 30 tabs 0RF pain M25.512 - Pain in left shoulder metaxalone 800 mg PO TID 20 tabs 0RF M25.512 - Pain in left shoulder Coding Level of Care Code Est Pt Level 3 (97741) Diagnoses Acute pain of left shoulder M25.512 Chronicity: acute Time Spent (min) 15
== END 2023-07-24 13:48 | disposition home or self-care (01) ==
PROVIDERS: PCP Internal Medicine; Visit Provider Nurse Practitioner Family
DX: M25.512 Pain in left shoulder (principal)
CPT/HCPCS: 99213

== ENCOUNTER 2024-05-31 14:38 | Outpatient (AMB) | payer MEDICARE, SELFPAY ==
[2024-05-31 14:43] VITALS: BP 122/90; PULSE 104; TEMP 36.2; O2SAT 98; BMI 26.0
--- NOTE | 2024-05-31 14:43 | A.OFFPC_ITS ---
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: physical transfer Allergies fentanyl [FENTANYL] Allergy (Intermediate, Verified 05/31/24 14:47) VOMITING AFTER SURGERY Medication List - Last Reconciled 05/31/24 by Regina Navarro MD aspirin (Ecotrin Low Strength) 81 mg PO DAILY lansoprazole 30 mg PO DAILY lorazepam 0.5 mg PO Q6H PRN phenytoin sodium extended 100 mg PO TID Tobacco use date assessed: 05/31/24 Fall risk assessment: No Falls in past year Last assessed Fall Risk: 05/31/24 Dental Screening Dental Screen Date: 05/31/24 Did you have a dental visit in the last 12 months?: Yes Did you have a dental problem in the last 6 months where you did not have access to dental care?: No Was dental information given to patient?: Patient has dentist [facility] Medical History (Updated 05/31/24 @ 15:52 by Regina Navarro MD) Anxiety Chronic GERD Barretts esophagus GERD (gastroesophageal reflux disease) PFO (patent foramen ovale) TIA (transient ischemic attack) Seizure Surgical History Hx of esophagogastroduodenoscopy History of appendectomy Family History Father Heart failure Myocardial infarction Mother Alzheimers disease Social History (Updated 05/31/24 @ 15:47 by Regina Navarro MD) Housing: House Alcohol intake: current Alcohol intake frequency: a few times a month Comment: 2 days weekend 4 beers once time Patient Tobacco Use Status: Never used Tobacco Years Smoked: marijuana e-Cigarette/Vaping Use: Never Used Second Hand Smoke Exposure: No service: No Current occupational status: employed Cognitive needs: No Hearing needs: No Vision needs: No Questionnaire PHQ-9 Over the last 2 weeks, how often have you been bothered by any of the following problems? 1. Little interest or pleasure in doing things: not at all 2. Feeling down, depressed, or hopeless: not at all 3. Trouble falling or staying asleep, or sleeping too much: several days 4. Feeling tired or having little energy: not at all 5. Poor appetite or overeating: not at all 6. Feeling bad about yourself - or that you are a failure or have let yourself or your family down: not at all 7. Trouble concentrating on things, such as reading the newspaper or watching television: not at all 8. Moving or speaking so slowly that other people could have noticed. Or the opposite - being so fidgety or restless that you have been moving around a lot more than usual: not at all 9. Thoughts that you would be better off or of hurting yourself in some way: not at all Total score: 1 Depression Screening Interpretation: Negative Depression Screening Done: Yes 94128 - PHQ-9 Billing: Yes Source: Developed by Drs. Amaury Marcos, Kacie Nagy, Jose Horne and colleagues, with an educational hilda from [employer]. Thrive Questionnaire Date Thrive assessed: 05/24/24 I am a: Patient What is your living situation today?: I have a steady place to live Within the past 12 months, did the food you bought not last and you didn't have the money to get more?: I choose not to answer this question Within the past 12 months, did you worry whether your food would run out before you got money to buy more?: I choose not to answer this question Do you have trouble paying for medicines?: No Do you have trouble getting transportation to medical appointments?: No Do you have trouble paying your heating and electricity bill?: Yes Do you have trouble taking care of your child, family member or friend?: No Do you have trouble with day-to-day activities such as bathing, preparing meals, shopping, managing finances, etc.?: No Are you currently unemployed and looking for a job?: No Are you interested in more education?: No Please select the resources that you would like help with: Food and Utilities Currently or been in a relationship where the following occur: No concerns reported THRIVE Score: 1 AUDIT C Alcohol Use Questionnaire (AUDIT-C) 1. How often do you have a drink containing alcohol?: 2-3 times a week 2. How many drinks containing alcohol do you have on a typical day when you are drinking?: 3 or 4 3. How often do you have six or more drinks on one occasion?: Monthly Total Score: 6 TEVIN-7 AMB Questionnaire TEVIN-7 Date TEVIN - 7 assessed: 05/31/24 Feeling nervous, anxious, or on edge: 0 = Not at all Not being able to stop or control worryin = Not at all Worrying too much about different things: 0 = Not at all Trouble relaxin = Several days Being so restless that it is hard to sit still: 0 = Not at all Becoming easily annoyed or irritable: 1 = Several days Feeling afraid as if something awful might happen: 0 = Not at all Total TEVIN-7 score (0-4 normal; 5-9 mild; 10-14 moderate; 15-21 severe): 2 Source: Developed by Drs. Amaury Marcos, Kacie Nagy, Jose Horne and colleagues, with an educational hilda from [employer]. TEVIN-7 Assessment Billing TEVIN-7 Assessment Tool: TEVIN-7 Assessment 19229 Physical exam (Primary Care) Vital Signs: Last Vital Signs Temp 97.1 F 05/31/24 14:43 Pulse 104 H 05/31/24 14:43 BP 122/90 H 05/31/24 14:43 Pulse Ox 98 05/31/24 14:43 Oxygen Delivery Method Room Air 05/31/24 14:43 BMI result Body Mass Index 26.0 Tobacco/Smoking Status: Tobacco use Status Tobacco use date assessed 05/31/24 05/31/24 14:50 Patient Tobacco Use Status Never used Tobacco 05/31/24 14:50 e-Cigarette/Vaping Use Never Used 05/31/24 14:50 PHQ-9: PHQ-9 Score PHQ-9: Total score 1 05/31/24 14:50 Depression Screening Interpretation: Negative Thrive Assessment: Date of Thrive Assessment Date Thrive assessed 05/24/24 05/31/24 14:50 Currently or been in a relationship where the following occur: No concerns reported Const General: alert; No acute distress Eyes Conjunctivae: conjunctivae normal Resp Auscultation: clear to auscultation bilaterally Cardio Rate: regular rate Rhythm: regular rhythm GI Inspection: Yes normal to inspection Extrem General: Yes normal to inspection and No edema Coding Level of Care Code Est Pt Level 4 (56563) Complex EM visit Add On G2211 Diagnoses Seizure R56.9 Generalized anxiety disorder F41.1 Barretts esophagus K22.70 Impaired glucose tolerance R73.02 Overweight (BMI 25.0-29.9) E66.3 Hypertension I10 Additional Codes TEVIN-7 Assessment Billing - TEVIN-7 Assessment Tool: TEVIN-7 Assessment 53396 ([id number]) PHQ-9 - 95758 - PHQ-9 Billing: Yes ([id number]) Assessment & Plan Assessment & Plan (1) Seizure: Comment: 2014 last seizure Code(s): R56.9 - Unspecified convulsions Category: Medical Plan: patient is on Dilantin 100 mg 3 times a day (2) Generalized anxiety disorder: Code(s): F41.1 - Generalized anxiety disorder Category: Medical Plan: continue with lorazepam as needed (3) Barretts esophagus: Comment: 2022 Dr. Merrill Code(s): K22.70 - Cosme's esophagus without dysplasia Category: Medical Plan: Avoid the foods that causes that usually spicy foods, tomato products, juices, coffee, soda and foods that your sensitive to. After eating do not lie down, allow 3-4 hours before in lie down. And keep the head of bed above 30 degrees to avoid the acid from going up. (4) Impaired glucose tolerance: Code(s): R73.02 - Impaired glucose tolerance (oral) Category: Medical Plan: Decrease the amount of carbohydrate intake, pasta, bread, rice and potatoes are all sugar and that is aside from all the sweet stuff, remember that fruits are good but they are Sweet also. (5) Overweight (BMI 25.0-29.9): Code(s): E66.3 - Overweight Category: Medical Plan: Diet and exercise (6) Hypertension: Code(s): I10 - Essential (primary) hypertension Category: Medical Plan History of Present Illness The patient is a 69-year-old male presenting with management concerns for elevated blood pressure and impaired glucose tolerance. He has a history of seizure disorder treated with phenytoin, currently with subtherapeutic blood levels, and no recent seizure activity, considering discontinuation of phenytoin. He experiences elevated blood pressure both at home and in clinical settings, prompting a trial of antihypertensive medication. Past medical history is significant for impaired glucose tolerance and GERD, with known Cosme's e sophagus monitored by regular endoscopy. Current medications include dla-mónica inhibitors, anxiolytics, and proton pump inhibitors. Socially, the patient consumes alcohol and recreational marijuana on weekends, which were discussed in relation to their potential health impact. Health Maintenance - Continue lansoprazole for management of Cosme's esophagus with routine surveillance endoscopy every 3 to 4 years. - Initiate low-dose antihypertensive medication and monitor blood pressure at home. - Discuss dietary modifications, particularly carbohydrate intake, due to impaired glucose tolerance. - Plans for routine blood work in a week to check fasting blood sugar, kidney & liver function, thyroid levels, hemoglobin A1c, prostate-specific antigen, and vitamin B12. - Exercise as part of lifestyle management emphasizing cardiovascular health. - Education on risks associated with alcohol and marijuana use. - Remain up to date with general health screenings, including colonoscopy by 2025. Social History - Alcohol consumption: 3-4 beers each on weekends (Friday and Friday). - Recreational drug use: Occasional marijuana on weekends. - Exercise: Walks regularly with his sister. 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 Review of Systems - Cardiovascular: Reports home blood pressure measurements often elevated. - Neurological: Denies recent seizure activity but has a distant history of shaking episodes. - Endocrine: Denies symptoms of hyperglycemia (such as increased thirst or urination). Physical Exam Results - Labs: Blood work (June 2023) shows elevated blood sugar and triglyceride levels at 179. Normal blood count, electrolytes, and renal function. Plan Initiate a low-dose antihypertensive medication to manage elevated blood pressure and recommend home blood pressure monitoring. Continue lansoprazole therapy for GERD management. Monitor blood glucose levels, emphasizing dietary modifications due to impaired glucose tolerance, and reassess with hemoglobin A1c testing. Discontinue phenytoin under close monitoring for seizure activity, given the absence of recent seizures and low serum levels. Schedule routine lab evaluations after starting the new antihypertensive medication, consider lifestyle counseling regarding alcohol and marijuana use, and maintain health screenings as advised. Patient was informed and verbally consented to the use of an ambient scribe for clinic note documentation during this visit. Discussion Notes I discussed with the patient the importance of managing elevated blood pressure and proposed initiating a low-dose antihypertensive medication. Home monitoring was emphasized to obtain more accurate readings, addressing potential white coat syndrome. Due to the patient's history of seizure disorder and low phenytoin levels, we considered discontinuation, with the caveat of monitoring for any seizure recurrence. The patient was informed of impaired glucose tolerance, and dietary adjustments were recommended to mitigate further progression. Risks and benefits of alcohol and recreational marijuana use were reviewed, highlighting cardiovascular concerns. Laboratory evaluations were planned for comprehensive monitoring of treatment impact and health status, including post-initiation blood work. Continued management of GERD with lansoprazole was affirmed, and recommendations for regular screening tests such as endoscopy and colonoscopy were made. Follow-up appointments were discussed to reassess treatment efficacy and ensure ongoing health management. Patient Instructions - Begin taking prescribed blood pressure medication daily in the morning. - Monitor blood pressure at home regularly and maintain a log of readings. - Avoid excessive carbohydrate consumption, focusing on dietary moderation. - Schedule follow-up blood work approximately a week after starting the new medication. - Report any side effects from new medication immediately. - Maintain regular exercise and active lifestyle. - Limit alcohol and recreational drug use to minimize cardiovascular risks. - Continue taking lansoprazole as prescribed and ensure regular health screening. - Contact healthcare provider if seizures or significant health changes occur. Orders: Orders Comprehensive Met. Panel Today R73.02 - Impaired glucose tolerance (oral) Free T4 (Free Thyroxine) Today R73.02 - Impaired glucose tolerance (oral) Lipid Panel Today E78.00 - Pure hypercholesterolemia, unspecified, R73.02 - Impaired glucose tolerance (oral) Vitamin B12 and Folate Today R73.02 - Impaired glucose tolerance (oral) Complete Blood Count Auto Diff Today R73.02 - Impaired glucose tolerance (oral) Hemoglobin A1c Today R73.02 - Impaired glucose tolerance (oral) Thyroid Stimulating Hormone Today R73.02 - Impaired glucose tolerance (oral) Prostate Specific Antigen Scr Today R73.02 - Impaired glucose tolerance (oral) Medications: New lisinopril 5 mg PO DAILY 30 tabs 3RF I10 - Essential (primary) hypertension
[2024-05-31 15:39] VITALS: BP 144/90
--- OUTSIDE RECORDS SUMMARY | 2024-05-31 16:33 | XMS_ITS | Patient Health Record ---
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 Role Phone José Manuel Sheppard MD Primary Care Provider Amaury Giron Unavailable [phone] Allergies Allergen (clinical drug ingredient) Drug/Non Drug Allergy documented on EMR Reaction Allergy Type Onset Date Status fentanyl Fentanyl Unknown Drug Allergy Active Reason For Referral No Information Medications Medication SIG (Take, Route, Frequency, Duration) Notes Start Date End Date Status Phenytoin Sodium Extended 100 MG 1 capsule Orally every 12 hrs for 30 day(s) Active Ecotrin Low Strength 81 MG 1 tablet Oral ly Once a day for 30 day(s) Active Lansoprazole 30 MG 1 capsule Orally Onc e a day for 30 day(s) Active LORazepam 0.5 MG 1 tablet as needed O rally Once a day/as needed Active Immunizations Vaccine Route Administration Date Status Comme nts Influenza Unknown 03/24/2018 Refused Influenza Unknown 02/09/2019 Refused Influenza Unknown 03/14/2022 Refused Problems Problem Type SNOMED Code ICD Code Onset Dates Problem Status W/U Status Risk Notes Problem 303396797 Gastro-esophagea l reflux disease without esophagitis (K21.9) Active confirmed Problem Gastroesophageal reflux disease (638326483) Gastroesophageal reflux disease (K21.9) Active confirmed Problem 739113895 Gastroesophageal reflux disease, esophagitis presence not specified (K21.9) Active confirmed Problem 318857183 Screening for colon cancer (Z12.11) Active confirmed Problem Cosme esophagus (134049212) Cosme esophagus (K22.70) Active confirmed Problem [id number] 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) Active confirmed Plan Of Treatment Pending Test Test Name Order Date Pathology 05/01/2022 Future Test Test Name Order Date COLONOSCOPY 12/27/2014 UPPER GI ENDOSCOPY 08/14/2017 UPPER GI ENDOSCOPY 03/24/2018 UPPER GI ENDOSCOPY 02/09/2019 UPPER GI ENDOSCOPY 03/14/2022 Insurance Providers Payer Name Payer Address Payer Phone Subscriber Number Group Number Insured Name Patient Relationship to Insured Coverage Start Date Coverage End Date [facility] [address] [place] [address] [phone] [id number] CALOSKALPANA Self - patient is the insured Medical (General) History Medical History History ICD Code TIA-approx 2008--found a sma ll PFO on a [place] with Dr. Mills--lost 80# and has had no problems since then Denies [place],DM,CVA,Lung disease,renal dise ase GERD--EGD 05/[address] Baugh rris--small hiatal hernia, esophageal diverticulum, and no esophagitis nor Cosme's esophagus Seizure disorder Negative screening colonoscopy in 03/2015 Cosme's esophagus--EGD in October of 2017 revealed a small hiatal hernia and small area of Cosme's mucosa, but biopsies revealed low-grade dysplasia--- there was no esophagitis; EGD 05/2018 small HH, small area of Cosme's but without dysplasia and no esophagitis EGD in 08/2019 was negative for dysplasia Surgical History Surgery Date(Month/Year) Lap. garcia--Dr. Yo 2014
== END 2024-05-31 15:59 | disposition home or self-care (01) ==
LOC: HO.HMCH 14:40
PROVIDERS: PCP Internal Medicine; Visit Provider Internal Medicine
DX: R56.9 Unspecified convulsions (principal); F41.1 Generalized anxiety disorder; K22.70 Barrett's esophagus without dysplasia; R73.02 Impaired glucose tolerance (oral); E66.3 Overweight; I10 Essential (primary) hypertension

== ENCOUNTER → 2024-05-31 14:38 | Outpatient (BNVA) | payer MEDICARE, SELFPAY | PROVIDERS: PCP Internal Medicine; Visit Provider Internal Medicine | DX: F41.1 Generalized anxiety disorder (principal); K22.70 Barrett's esophagus without dysplasia; R73.02 Impaired glucose tolerance (oral); E66.3 Overweight; I10 Essential (primary) hypertension; R56.9 Unspecified convulsions; E78.00 Pure hypercholesterolemia, unspecified; Z68.26 Body mass index [BMI] 26.0-26.9, adult | CPT/HCPCS: 96127; 99212 ==

== ENCOUNTER 2024-06-10 06:00 | Outpatient (REF) | payer MEDICARE, SELFPAY ==
[2024-06-10 07:34] LABS: MANUAL DIFF FLAG NO
[2024-06-10 07:50] LABS: Estimated Average Glucose 108 mg/dL; Hemoglobin A1C 143.2009 umol/L; Hemoglobin A1c % 5.4 % (<6.0); Total Hemoglobin (HGBA1C) 4025.0272 umol/L
[2024-06-10 07:51] LABS: Basophils Percent Auto 0.2 % (0-2); Eosinophils Percent Auto 0.4 % (0-4); Hematocrit 45.8 % (42.0-52.0); Hemoglobin 15.5 g/dl (14.0-18.0); Imm Gran Abs Auto 0.01 X10*3/uL (0.00-0.03); Imm Gran Pct Auto 0.2 % (0.0-0.4); Lymphocytes Absolute Auto 2.1 X10*3/uL (1.2-4.9); Lymphocytes Percent Auto 44.8 % (20-40); Mean Corpuscular HGB Conc 33.8 g/dl (31.0-36.0); Mean Corpuscular Hemoglobin 31.1 pg (27.0-33.0); Mean Corpuscular Volume 91.8 fL (80.0-98.0); Mean Platelet Volume 10.6 fL (9.4-12.4); Monocytes Absolute Auto 0.4 X10*3/uL (0.1-1.2); Monocytes Percent Auto 9.3 % (2-11); Neutrophils Absolute Auto 2.1 x10*3/uL (2.0-8.3); Neutrophils Percent Auto 45.1 % (45-73); Platelet Count 237 X10*3/uL (160-400); Red Blood Count 4.99 X10*6/uL (4.60-5.80); Red Cell Distribution Width 12.1 % (11.0-16.0); White Blood Count 4.8 X10*3/uL (4.8-10.8)
[2024-06-10 08:03] LABS: Alanine Aminotransferase 16 U/L (0-40); Albumin Level 4.5 g/dL (3.5-5.0); Alkaline Phosphatase 64 U/L (39-117); Anion Gap 14 (12-20); Aspartate Amino Transferase 23 U/L (5-37); Bilirubin Total 0.8 mg/dL (0.0-1.0); Blood Urea Nitrogen 15 mg/dL (9-16); Calcium 9.7 mg/dL (8.4-10.2); Carbon Dioxide 23 mmol/L (22-29); Chloride 108 mmol/L (96-108); Cholesterol 197 mg/dL (<200); Estimated Glomerular Filt Rate > 60; Glucose Random 100 mg/dL (60-115); HDL Cholesterol 59 mg/dL (>40); LDL Cholesterol Calculated 120 mg/dL (<100); Potassium 4.1 mmol/L (3.3-5.1); Sodium 141 mmol/L (135-145); Total Protein 7.8 g/dL (6.5-8.0); Triglycerides 94 mg/dL (<150)
[2024-06-10 08:18] LABS: Free T4 (Free Thyroxine) 1.17 ng/dL (0.71-1.85)
[2024-06-10 08:31] LABS: Folate 15.3 ng/mL (> or = 4.0); Prostate Specific Antigen Scr 1.41 ng/mL (<0.05-4.0); Vitamin B12 455 pg/mL (200-900)
== END 2024-06-10 06:01 | disposition home or self-care (01) ==
LOC: HO.LAB 06:00
PROVIDERS: PCP Internal Medicine; Visit Provider Internal Medicine
DX: R73.02 Impaired glucose tolerance (oral) (principal); E78.00 Pure hypercholesterolemia, unspecified; Z12.5 Encounter for screening for malignant neoplasm of prostate
CPT/HCPCS: 36415; 80053; 80061; 82607; 82746; 83036; 84153; 84439; 84443; 85025

== ENCOUNTER 2024-09-30 13:59 | Outpatient (AMB) | payer MEDICARE, SELFPAY ==
[2024-09-30 14:01] VITALS: BP 128/90; PULSE 85; RESP 18; TEMP 36.3; O2SAT 97; BMI 24.7
--- NOTE | 2024-09-30 14:01 | A.OFFPC_ITS ---
Vital Signs 09/30/24 14:01 Height 5 ft 9 in Weight 167 lb 4 oz BMI 24.7 BP 128/90 H Blood Pressure Location Lt brachial Position Sitting Respiration 18 Pulse 85 Pulse Source Pulse Oximeter Temp 97.3 F Temp Source Temporal Artery Scan Pulse Oximetry (%) 97 Oxygen Delivery Method Room Air Intake Visit Reasons: MONITOR bp 3 MONTHS Allergies fentanyl (FENTANYL) Allergy (Intermediate, Verified 09/30/24 14:05) VOMITING AFTER SURGERY Medication List - Last Reconciled 09/30/24 by Regina Navarro MD aspirin (Ecotrin Low Strength) 81 mg PO DAILY lansoprazole 30 mg PO DAILY lisinopril 10 mg PO DAILY lorazepam 0.5 mg PO Q6H PRN Tobacco use date assessed: 09/30/24 Fall risk assessment: No Falls in past year Last assessed Fall Risk: 09/30/24 Dental Screening Dental Screen Date: 09/30/24 Did you have a dental visit in the last 12 months?: Yes Did you have a dental problem in the last 6 months where you did not have access to dental care?: No Was dental information given to patient?: Patient has dentist HPI MONITOR bp 3 MONTHS HPI Details dilantin off and so far no seizures PFSH Medical History Anxiety Chronic GERD Barretts esophagus GERD (gastroesophageal reflux disease) PFO (patent foramen ovale) TIA (transient ischemic attack) Seizure Surgical History Hx of esophagogastroduodenoscopy History of appendectomy Family History Father Heart failure Myocardial infarction Mother Alzheimers disease Social History Housing: House Alcohol intake: current Alcohol intake frequency: a few times a month Comment: 2 days weekend 4 beers once time Patient Tobacco Use Status: Never used Tobacco Years Smoked: marijuana e-Cigarette/Vaping Use: Never Used Second Hand Smoke Exposure: No service: No Current occupational status: employed Cognitive needs: No Hearing needs: No Vision needs: No Questionnaire PHQ-9 Over the last 2 weeks, how often have you been bothered by any of the following problems? 1. Little interest or pleasure in doing things: not at all 2. Feeling down, depressed, or hopeless: not at all 3. Trouble falling or staying asleep, or sleeping too much: several days 4. Feeling tired or having little energy: not at all 5. Poor appetite or overeating: not at all 6. Feeling bad about yourself - or that you are a failure or have let yourself or your family down: not at all 7. Trouble concentrating on things, such as reading the newspaper or watching television: not at all 8. Moving or speaking so slowly that other people could have noticed. Or the opposite - being so fidgety or restless that you have been moving around a lot more than usual: not at all 9. Thoughts that you would be better off or of hurting yourself in some way: not at all Total score: 1 Depression Screening Interpretation: Negative Depression Screening Done: Yes Source: Developed by Drs. Amaury Marcos, Kacie Nagy, Jose Horne and colleagues, with an educational hilda from [employer]. Thrive Questionnaire Date Thrive assessed: 05/24/24 I am a: Patient What is your living situation today?: I have a steady place to live Within the past 12 months, did the food you bought not last and you didn't have the money to get more?: I choose not to answer this question Within the past 12 months, did you worry whether your food would run out before you got money to buy more?: I choose not to answer this question Do you have trouble paying for medicines?: No Do you have trouble getting transportation to medical appointments?: No Do you have trouble paying your heating and electricity bill?: Yes Do you have trouble taking care of your child, family member or friend?: No Do you have trouble with day-to-day activities such as bathing, preparing meals, shopping, managing finances, etc.?: No Are you currently unemployed and looking for a job?: No Are you interested in more education?: No Currently or been in a relationship where the following occur: No concerns reported THRIVE Score: 1 AUDIT C Alcohol Use Questionnaire (AUDIT-C) 1. How often do you have a drink containing alcohol?: 2-3 times a week 2. How many drinks containing alcohol do you have on a typical day when you are drinking?: 3 or 4 3. How often do you have six or more drinks on one occasion?: Less than monthly Total Score: 5 TEVIN-7 AMB Questionnaire TEVIN-7 Date TEVIN - 7 assessed: 05/31/24 Feeling nervous, anxious, or on edge: 0 = Not at all Not being able to stop or control worryin = Not at all Worrying too much about different things: 0 = Not at all Trouble relaxin = Several days Being so restless that it is hard to sit still: 0 = Not at all Becoming easily annoyed or irritable: 1 = Several days Feeling afraid as if something awful might happen: 0 = Not at all Total TEVIN-7 score (0-4 normal; 5-9 mild; 10-14 moderate; 15-21 severe): 2 Source: Developed by Drs. Amaury Marcos, Kacie Nagy, Jose Horne and colleagues, with an educational hilda from [employer]. Physical exam (Primary Care) Vital Signs: Last Vital Signs Temp 97.3 F 09/30/24 14:01 Pulse 85 09/30/24 14:01 Resp 18 09/30/24 14:01 BP 128/90 H 09/30/24 14:01 Pulse Ox 97 09/30/24 14:01 Oxygen Delivery Method Room Air 09/30/24 14:01 BMI result Body Mass Index 24.7 Tobacco/Smoking Status: Tobacco use Status Tobacco use date assessed 09/30/24 09/30/24 14:07 Patient Tobacco Use Status Never used Tobacco 09/30/24 14:07 e-Cigarette/Vaping Use Never Used 09/30/24 14:07 PHQ-9: PHQ-9 Score PHQ-9: Total score 1 09/30/24 14:15 Depression Screening Interpretation: Negative Thrive Assessment: Date of Thrive Assessment Date Thrive assessed 05/24/24 09/30/24 14:07 Currently or been in a relationship where the following occur: No concerns reported Const General: alert; No acute distress Eyes Conjunctivae: conjunctivae normal Resp Auscultation: clear to auscultation bilaterally Cardio Rate: regular rate Rhythm: regular rhythm GI Inspection: Yes normal to inspection Extrem General: Yes normal to inspection and No edema Coding Level of Care Code Est Pt Level 4 (37170) Diagnoses Hypertension I10 Impaired glucose tolerance R73.02 Barretts esophagus K22.70 Generalized anxiety disorder F41.1 Assessment & Plan Assessment & Plan (1) Hypertension: Code(s): I10 - Essential (primary) hypertension Category: Medical Plan: Continue with blood pressure medication. Decrease salt intake and exercise patient is on lisinopril 5 mg once a day (2) Impaired glucose tolerance: Code(s): R73.02 - Impaired glucose tolerance (oral) Category: Medical Plan: Decrease the amount of carbohydrate intake, pasta, bread, rice and potatoes are all sugar and that is aside from all the sweet stuff, remember that fruits are good but they are Sweet also. (3) Barretts esophagus: Comment: 2022 Dr. Merrill Code(s): K22.70 - Cosme's esophagus without dysplasia Category: Medical Plan: Avoid the foods that causes that usually spicy foods, tomato products, juices, coffee, soda and foods that your sensitive to. After eating do not lie down, allow 3-4 hours before in lie down. And keep the head of bed above 30 degrees to avoid the acid from going up. On lansoprazole (4) Generalized anxiety disorder: Code(s): F41.1 - Generalized anxiety disorder Category: Medical Plan: Continue with lorazepam as needed Plan History of Present Illness The patient is a 69-year-old male presenting with a follow-up for chronic conditions and preventative care. He has a history of seizure disorder, generalized anxiety disorder, Cosme's esophagus, and hypertension. His last colonoscopy was performed in 2015, and he is due for another in 2025. The patient reports discontinuation of Dilantin four months ago with no subsequent seizures, indicating stable seizure control. He is currently managing anxiety with lorazepam as needed. Blood pressure management includes lisinopril, which has been increased from 5 mg to 10 mg daily due to suboptimal control. The patient has been advised to monitor blood pressure at home. The patient has lost approximately 9 pounds since May, attributed to dietary modifications, including reduced carbohydrate and sugar intake. He maintains a light diet during the week and allows for more indulgence on weekends. Laboratory results from June 2024 indicate normal blood count, electrolytes, kidney function, and liver function. Fasting blood sugar was slightly elevated at 100 mg/dL, but hemoglobin A1c was normal. LDL cholesterol was 120 mg/dL, within acceptable limits. The patient reports a Dupuytren's contracture in one finger, which does not currently require intervention. Health Maintenance - Colonoscopy last performed in 2015, next due in 2025 - Discussion about shingles vaccination, not currently pursued due to work commitments Social History - Diet: Light meals during the week, more indulgent on weekends - Weight management: Lost 9 pounds since May through dietary changes Review of Systems - Neurological: Denies seizures since discontinuation of Dilantin - Gastrointestinal: Reports regular bowel movements with Metamucil use - Genitourinary: Denies urinary issues, reports nocturia twice per night Physical Exam - Cardiovascular: Heart auscultation performed Results - Labs: Normal blood count, electrolytes, kidney function, liver function - Labs: Fasting blood sugar 100 mg/dL, normal hemoglobin A1c - Labs: LDL cholesterol 120 mg/dL Plan The patient's blood pressure management plan includes increasing lisinopril to 10 mg daily and monitoring blood pressure at home to ensure optimal control. For anxiety management, the patient will continue using lorazepam as needed. The patient is advised to maintain dietary modifications to manage blood sugar levels, given the slightly elevated fasting blood sugar. Preventative care includes scheduling a follow-up colonoscopy in 2025 and considering shingles vaccination when work commitments allow. The Dupuytren's contracture will be monitored, and a referral will be considered if it becomes problematic. Patient was informed and verbally consented to the use of an ambient scribe for clinic note documentation during this visit. Discussion Notes During the visit, we discussed the importance of monitoring blood pressure at home and adjusting lisinopril dosage to 10 mg daily to achieve better control. I advised the patient to continue lorazepam for anxiety management as needed and to maintain dietary changes to manage blood sugar levels. We also reviewed the need for a follow-up colonoscopy in 2025 and discussed the option of shingles vaccination, which the patient may consider in the future when work commitments allow. Patient Instructions - Increase lisinopril to 10 mg daily and monitor blood pressure at home. - Continue lorazepam as needed for anxiety. - Maintain dietary changes to manage blood sugar levels. - Schedule a follow-up colonoscopy in 2025. - Consider shingles vaccination when work commitments allow. - Monitor Dupuytren's contracture and report if it becomes problematic. Medications: Changed From lisinopril 5 mg PO DAILY 90 tabs 1RF I10 - Essential (primary) hypertension To lisinopril 10 mg PO DAILY 90 tabs 1RF I10 - Essential (primary) hypertension Refilled lansoprazole 30 mg PO DAILY 90 caps 3RF
--- OUTSIDE RECORDS SUMMARY | 2024-09-30 14:12 | XMS_ITS | Patient Health Record ---
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 Role Phone José Manuel Sheppard MD Primary Care Provider Amaury Giron Unavailable [phone] Allergies Allergen (clinical drug ingredient) Drug/Non Drug [...] Problem Status W/U Status Risk Notes Problem [id number] Gastro-esophagea l reflux disease without esophagitis (K21.9) Active confirmed Problem Gastroesophageal reflux disease (769763188) Gastroesophageal reflux disease (K21.9) Active confirmed Problem [id number] Gastroesophageal reflux disease, esophagitis presence not specified (K21.9) Active confirmed Problem [id number] Screening for colon cancer (Z12.11) Active confirmed Problem Cosme esophagus (691024867) Cosme esophagus (K22.70) Active confirmed Problem [id number] 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) [...] Insured Coverage Start Date Coverage End Date [facility] [address] [place] [address] [phone] [id number] CALOSKALPANA Self - patient is the insured Medical (General) History Medical History History ICD Code TIA-approx 2008--found a sma ll PFO on a L[place] with Dr. Mills--lost 80# and has had no problems since then Denies SD,DM,CVA,Lung disease,renal dise ase GERD--EGD 05/[address] [...]
== END 2024-09-30 14:26 | disposition home or self-care (01) ==
LOC: HO.HMCH 14:00
PROVIDERS: PCP Internal Medicine; Visit Provider Internal Medicine
DX: I10 Essential (primary) hypertension (principal); R73.02 Impaired glucose tolerance (oral); K22.70 Barrett's esophagus without dysplasia; F41.1 Generalized anxiety disorder

== ENCOUNTER → 2024-09-30 13:59 | Outpatient (BNVA) | payer MEDICARE, SELFPAY | PROVIDERS: PCP Internal Medicine; Visit Provider Internal Medicine | DX: I10 Essential (primary) hypertension (principal); R73.02 Impaired glucose tolerance (oral); K22.70 Barrett's esophagus without dysplasia; F41.1 Generalized anxiety disorder; G40.909 Epilepsy, unspecified, not intractable, without status epilepticus | CPT/HCPCS: 96127; 99212 ==

== ENCOUNTER 2025-02-03 08:14 | Outpatient (AMB) | payer MEDICARE, SELFPAY ==
[2025-02-03 08:21] VITALS: BP 136/88; PULSE 77; O2SAT 98; BMI 24.7
--- NOTE | 2025-02-03 08:21 | MHC.PC.OV ---
Vital Signs 02/03/25 08:21 Height 5 ft 9 in Weight 167 lb BMI 24.7 BP 136/88 Blood Pressure Location Lt brachial Position Sitting Pulse 77 Pulse Source Pulse Oximeter Pulse Oximetry (%) 98 Oxygen Delivery Method Room Air Intake Visit Reasons: Hypertension Allergies fentanyl (FENTANYL) Allergy (Intermediate, Verified 02/03/25 08:21) VOMITING AFTER SURGERY Medication List - Last Reconciled 02/03/25 by Regina Navarro MD aspirin (Ecotrin Low Strength) 81 mg PO DAILY lansoprazole 30 mg PO DAILY lisinopril 20 mg PO DAILY lorazepam 0.5 mg PO Q6H PRN Tobacco use date assessed: 09/30/24 Fall risk assessment: No Falls in past year Last assessed Fall Risk: 02/03/25 Dental Screening Dental Screen Date: 09/30/24 HPI HPI Comments History of Present Illness Details History of Present Illness The patient is a 70-year-old male presenting for a follow-up visit for management of chronic medical conditions and evaluation of new onset headaches and palpitations. He has a history of controlled seizures, anxiety disorder, Cosme's esophagus, impaired glucose tolerance, and hypertension. His last complete blood work in June revealed a normal blood count, electrolytes, and renal function, as well as a normal hemoglobin A1c, PSA, folic acid, and thyroid levels, with an LDL of 120. The patient reports experiencing dull headaches in the back of his neck and occasional heart pounding, which he attributes to stress. He denies dizziness or syncope. Regarding health maintenance, his last colonoscopy was in 2015. His last tetanus shot was in 2014, and he declines the flu shot. Health Maintenance The patient is due for a colonoscopy, with his last one performed in 2015. Vaccinations for shingles and pneumonia were discussed and recommended; the patient will consider the pneumonia shot. A request for blood tests was created to be completed in 4 to 5 months, before his next physical exam in June. The patient was advised to ensure adequate hydration by drinking 6 to 8 glasses of water daily. Social History - Diet: The patient reports maintaining his weight and consuming a diet low in salt, avoiding packaged and frozen foods. - He primarily eats home-cooked meals with occasional pizza or a hamburger, and avoids sugary drinks. - Stressors: He reports significant stress from watching television news. - Activity: He does not engage in woodworking or activities involving soil. - Fluid intake: He was encouraged to drink 6-8 glasses of water daily. Results - Blood work from June: Results were normal for complete blood count, electrolytes, renal function, hemoglobin A1c, PSA, folic acid, and thyroid function. - LDL cholesterol was 120. [facility] Medical History Anxiety Chronic GERD Barretts esophagus GERD (gastroesophageal reflux disease) PFO (patent foramen ovale) TIA (transient ischemic attack) Seizure Surgical History Hx of esophagogastroduodenoscopy History of appendectomy Family History Father Heart failure Myocardial infarction Mother Alzheimers disease Social History Housing: House Alcohol intake: current Alcohol intake frequency: a few times a month Comment: 2 days weekend 4 beers once time Patient Tobacco Use Status: Never used Tobacco Tobacco use type: Cigarette Years Smoked: marijuana e-Cigarette/Vaping Use: Never Used Second Hand Smoke Exposure: No service: No Current occupational status: employed Cognitive needs: No Hearing needs: No Vision needs: No Questionnaire Thrive Questionnaire Date Thrive assessed: 05/24/24 I am a: Patient What is your living situation today?: I have a steady place to live Within the past 12 months, did the food you bought not last and you didn't have the money to get more?: I choose not to answer this question Within the past 12 months, did you worry whether your food would run out before you got money to buy more?: I choose not to answer this question Do you have trouble paying for medicines?: No Do you have trouble getting transportation to medical appointments?: No Do you have trouble paying your heating and electricity bill?: Yes Do you have trouble taking care of your child, family member or friend?: No Do you have trouble with day-to-day activities such as bathing, preparing meals, shopping, managing finances, etc.?: No Are you currently unemployed and looking for a job?: No Are you interested in more education?: No Currently or been in a relationship where the following occur: No concerns reported THRIVE Score: 1 TEVIN-7 AMB Questionnaire TEVIN-7 Date TEVIN - 7 assessed: 05/31/24 Source: Developed by Drs. Amaury Marcos, Kacie Nagy, Jose Horne and colleagues, with an educational hilda from [employer]. Review of Systems Narrative Review of Systems - Neurological: Reports intermittent dull headaches in the back of the neck. - Denies dizziness or syncope. - Cardiovascular: Reports occasional heart pounding. - Respiratory: Denies cough or shortness of breath. - Gastrointestinal: Reports good bowel movements. Physical exam (Primary Care) Vital Signs: Last Vital Signs Pulse 77 02/03/25 08:21 BP 136/88 02/03/25 08:21 Pulse Ox 98 02/03/25 08:21 Oxygen Delivery Method Room Air 02/03/25 08:21 BMI result Body Mass Index 24.7 Tobacco/Smoking Status: Tobacco use Status Tobacco use date assessed 09/30/24 02/03/25 08:25 Patient Tobacco Use Status Never used Tobacco 02/03/25 08:25 Tobacco use type Cigarette 02/03/25 08:25 e-Cigarette/Vaping Use Never Used 02/03/25 08:25 Thrive Assessment: Date of Thrive Assessment Date Thrive assessed 05/24/24 02/03/25 08:25 Currently or been in a relationship where the following occur: No concerns reported Narrative Physical Exam - Vitals: Blood pressure is 150/70 mmHg. - Cardiovascular: Regular rate and rhythm with extra beats heard on auscultation. - Respiratory: Lungs are clear to auscultation bilaterally. Const General: alert; No acute distress Eyes Conjunctivae: conjunctivae normal Resp Auscultation: clear to auscultation bilaterally Cardio Rate: regular rate Rhythm: regular rhythm GI Inspection: Yes normal to inspection Extrem General: Yes normal to inspection and No edema Coding Level of Care Code Est Pt Level 4 (68929) Complex visit Add On G2211 Diagnoses Impaired glucose tolerance R73.02 Hypertension I10 Barretts esophagus K22.70 Generalized anxiety disorder F41.1 Assessment & Plan Assessment & Plan (1) Impaired glucose tolerance: Code(s): R73.02 - Impaired glucose tolerance (oral) Category: Medical Plan: Decrease the amount of carbohydrate intake, pasta, bread, rice and potatoes are all sugar and that is aside from all the sweet stuff, remember that fruits are good but they are Sweet also. (2) Hypertension: Code(s): I10 - Essential (primary) hypertension Category: Medical Plan: Continue with blood pressure medication. Decrease salt intake and exercise on lisinopril 10 mg once a day (3) Barretts esophagus: Comment: 2022 Dr. Merrill Code(s): K22.70 - Cosme's esophagus without dysplasia Category: Medical Plan: Avoid the foods that causes that usually spicy foods, tomato products, juices, coffee, soda and foods that your sensitive to. After eating do not lie down, allow 3-4 hours before in lie down. And keep the head of bed above 30 degrees to avoid the acid from going up. (4) Generalized anxiety disorder: Code(s): F41.1 - Generalized anxiety disorder Category: Medical Plan: Continue with present medication as needed Plan Plan Patient was informed and verbally consented to the use of an ambient scribe for clinic note documentation during this visit. 1. Hypertension The patient's blood pressure was elevated at 150/70 mmHg despite treatment with lisinopril 10 mg daily. The dose of lisinopril will be increased to 20 mg daily. He was instructed to take two of his 10 mg tablets until the new prescription is filled. He was also counseled on stress reduction, including avoiding watching stressful television programs. 2. Anxiety Disorder The patient requested a refill for lorazepam. A prescription [facility]. 3. Gastroesophageal Reflux Disease The patient will continue his current reflux medication as needed. Discussion Notes I discussed the patient's elevated blood pressure reading of 150/70 mmHg. I explained that his current 10 mg dose of lisinopril is low and recommended increasing it to 20 mg daily to better manage his hypertension, which may also alleviate his headaches. We reviewed his medication list and I sent a refill for his lorazepam. I also reviewed recommended health screenings and immunizations, including a colonoscopy, for which he is overdue, and vaccines for shingles and pneumonia. The patient agreed to consider the pneumonia vaccine. I advised him on lifestyle modifications, including stress reduction and adequate hydration, and scheduled a follow-up appointment for his physical in June, with labs to be done beforehand. Patient Instructions - Take two of your current 10 mg lisinopril pills once a day until you can case picker your new prescription for 20 mg tablets. - A refill for your lorazepam has [facility] to [facility]. - Continue taking your reflux medication as needed. - Make sure to drink about six to eight glasses of water each day. - Consider getting the recommended vaccines for shingles and pneumonia. - You are due for a colonoscopy. Expect the specialist's office to contact you to schedule it. - Please get your blood work done in about 4-5 months, before your next visit. - Your next follow-up appointment is in June for your physical. - If your headaches or feelings of a pounding heart continue, please contact our office. Orders: Orders Free T4 (Free Thyroxine) 6 Months I10 - Essential (primary) hypertension Prostate Specific Antigen Scr 6 Months I10 - Essential (primary) hypertension Magnesium 6 Months K22.70 - Cosme's esophagus without dysplasia Complete Blood Count Auto Diff 6 Months I10 - Essential (primary) hypertension Comprehensive Met. Panel 6 Months I10 - Essential (primary) hypertension Thyroid Stimulating Hormone 6 Months I10 - Essential (primary) hypertension Lipid Panel 6 Months E78.00 - Pure hypercholesterolemia, unspecified, I10 - Essential (primary) hypertension Vitamin B12 and Folate 6 Months I10 - Essential (primary) hypertension Medications: Changed From lisinopril 10 mg PO DAILY 90 tabs 1RF I10 - Essential (primary) hypertension To lisinopril 20 mg PO DAILY 30 tabs 3RF I10 - Essential (primary) hypertension Refilled lorazepam 0.5 mg PO Q6H PRN 90 tabs 0RF agitation I10 - Essential (primary) hypertension
--- OUTSIDE RECORDS SUMMARY | 2025-02-03 08:27 | XMS_ITS | Patient Health Record ---
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 Name Role Phone José Manuel Sheppard MD Primary Care Provider Amaury Giron Unavailable [phone] Allergies Allergen (clinical drug ingredient) Drug/Non Drug Allergy documented on EMR Reaction Allergy Type Onset Date Status fentanyl Fentanyl Unknown Drug Allergy Active Reason For Referral No Information Medications Medication SIG (Take, Route, Frequency, Duration) Notes Start Date End Date Status Phenytoin Sodium Extended 100 MG Capsule 1 capsule Orally every 12 hrs; Duration: 30 day(s) Active Ecotrin Low Strength 81 MG Tablet Delayed Release 1 tablet Orally Once a day; Duration: 30 day(s) Active Lansoprazole 30 MG Capsule Delayed Release 1 capsule Orally Once a day; Duration: 30 day(s) Active LORazepam 0.5 MG Tablet 1 tablet as need ed Orally Once a day/as needed Active Immunizations Vaccine Route Administration Date Status Comme nts Influenza Unknown 03/24/2018 Refused Influenza Unknown 02/09/2019 Refused Influenza Unknown 03/14/2022 Refused Social History Social History Additional Details Category Social Info Options Details Miscellaneous: Marital status: SINGLE 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 [employer] Caffeine: none Section Notes: Nonmoker; 4-5 beers on the w eekend Nonmoker; 4-5 beers on the w eekend Nonmoker; 4-5 beers on the w eekend Nonmoker; 4-5 beers on the w eekend Nonmoker; 4-5 beers on the w eekend Problems Problem Type SNOMED Code ICD Code Onset Dates Problem Status W/U Status Risk Notes Problem Gastro-esophageal reflux disease without esophagitis (711752924) Gastro-esophageal reflux disease without esophagitis (K21.9) Active confirmed Problem Gastroesophageal reflux disease (509332420) Gastroesophageal reflux disease (K21.9) Active confirmed Problem Gastroesophageal reflux disease (241314825) Gastroesophageal reflux disease, esophagitis presence not specified (K21.9) Active confirmed Problem Screening for colon cancer (344705454) Screening for colon cancer (Z12.11) Active confirmed Problem 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 Mills--lost 80# and has had no problems since then Denies NV,DM,CVA,Lung disease,renal dise ase GERD--EGD 05/[address] [...]
== END 2025-02-03 08:55 | disposition home or self-care (01) ==
LOC: HO.HMCH 08:15
PROVIDERS: PCP Internal Medicine; Visit Provider Internal Medicine
DX: R73.02 Impaired glucose tolerance (oral) (principal); I10 Essential (primary) hypertension; K22.70 Barrett's esophagus without dysplasia; F41.1 Generalized anxiety disorder

== ENCOUNTER → 2025-02-03 08:14 | Outpatient (BNVA) | payer MEDICARE, SELFPAY | PROVIDERS: PCP Internal Medicine; Visit Provider Internal Medicine | DX: R73.02 Impaired glucose tolerance (oral) (principal); I10 Essential (primary) hypertension; K22.70 Barrett's esophagus without dysplasia; F41.1 Generalized anxiety disorder | CPT/HCPCS: 99212 ==